=== PATIENT | male | born 1995 | race Caucasian/White ===

== ENCOUNTER 2017-01-23 03:27 | Emergency (ER) | payer SELFPAY ==
[2017-01-23] MEDS ORDERED: Lidocaine 1% w/Epinephrine 1:100K 20 ML VIAL ONE (03:38)
[2017-01-23] MEDS ORDERED: Triple Antibiotic Oint 1 GM Packet ONE (03:55)
[2017-01-23 06:11] LABS: #Basophils 0.1 thou/uL (0.0-0.2); #Eosinphils 0.1 thou/uL (0.0-0.7); #Lymphocytes 1.3 thou/uL (1.20-3.40); #Monocytes 0.7 thou/uL (0.11-0.59); #Neutrophils 16.9 thou/uL (1.40-6.50); %Basophils 0.4 % (0.0-1.0); %Eosinophils 0.6 % (0.0-10.0); %Lymphocytes 6.8 % (28.0-48.0); %Monocytes 3.9 % (0.0-4.0); %Neutrophils 88.5 % (31.0-61.0); Hemoglobin 16.7 g/dL (14.0-18.0); Mean Corpuscular HGB CONC 34.9 g/dL (32.0-36.0); Mean Corpuscular Hemoglobin 32.9 pg (25.0-35.0); Mean Corpuscular Volume 94.4 fl (77.0-87.0); Mean Platelet Volume 9.8 fL (7.4-10.4); Platelet Count 215 thou/uL (130-400); RBC Distribution Width 11.3 % (11.5-14.5); Red Blood Cell (RBC) Count 5.06 mill/uL (4.00-5.20); White Blood Cell (WBC) Count 19.1 thou/uL (4.8-10.8)
[2017-01-23] MEDS ORDERED: Sodium Chloride Irrig Solution 250 ML BOT ONE (06:23)
[2017-01-23] MEDS ORDERED: Sodium Chloride 0.9% 1,000 ML BAG ONE (06:23)
[2017-01-23 06:25] LABS: ALT (SGPT) 25 U/L (8-55); AST (SGOT) 35 U/L (5-34); Albumin 4.7 g/dL (3.5-5.0); Alcohol 79 mg/dL (Less than 10); Alkaline Phosphatase 105 U/L (Less than 750); Anion Gap 17 mmol/L (10-20); BUN (Urea Nitrogen) 9 mg/dL (8.9-20.6); Bilirubin, Total Less than 0.3 mg/dL (0.2-1.2); Calc. Creatinine Clearance 0 mL/min (70-130); Calcium 9.3 mg/dL (7.8-10.44); Carbon Dioxide 25 mmol/L (22-29); Chloride 105 mmol/L (98-107); Estimated GFR-MDRD Greater than 90; Globulin 2.5 g/dL (2.4-3.5); Glucose 109 mg/dL (70-105); Potassium 3.8 mmol/L (3.5-5.1); Protein, Total 7.2 g/dL (6.0-8.3); Sodium 143 mmol/L (136-145)
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
[2017-01-23] MEDS ORDERED: Iopamidol 370 76% 100 ML VIAL ONE (12:01)
== END 2017-01-23 05:47 | disposition short-term general hospital (02) ==
LOC: MADERS 03:27
DX: S06.5X0A Traumatic subdural hemorrhage without loss of consciousness, initial encounter (principal); S01.01XA Laceration without foreign body of scalp, initial encounter; F17.220 Nicotine dependence, chewing tobacco, uncomplicated; V86.59XA Driver of other special all-terrain or other off-road motor vehicle injured in nontraffic accident, initial encounter
CPT/HCPCS: 12002; 36415; 70450; 71010; 71260; 72125; 74177; 80053; 80307; 85025; J2001; J7050

== ENCOUNTER 2017-02-02 09:08 | Emergency (ER) | payer SELFPAY | END 2017-02-02 09:20 | disposition home or self-care (01) | LOC: MADERS 09:08 | DX: S01.01XD Laceration without foreign body of scalp, subsequent encounter (principal); F17.210 Nicotine dependence, cigarettes, uncomplicated; F17.220 Nicotine dependence, chewing tobacco, uncomplicated; W45.8XXD Other foreign body or object entering through skin, subsequent encounter ==